=== PATIENT | female | born 1950 | race Caucasian/White ===

== ENCOUNTER 2016-08-12 11:57 | Observation (INO) | payer MEDICARE, OTHER ==
[2016-08-05 14:12] LABS: BASOPHILS 0.9 %; BASOPHILS ABSOLUTE 0.04 10/3/uL (0.0-0.16); EOSINOPHILS 5.9 %; EOSINOPHILS ABSOLUTE 0.25 10/3/uL (0.0-0.53); HEMATOCRIT 35.8 % (36.0-48.0); HEMOGLOBIN 11.5 g/dL (12.0-16.0); IMMATURE GRANULOCYTES 0.2 %; IMMATURE GRANULOCYTES ABSOLUTE 0.01 10/3/uL (0.0-0.11); LYMPHOCYTES 29.2 %; LYMPHOCYTES ABSOLUTE 1.24 10/3/uL (0.67-4.30); MANUAL DIFF NO %; MEAN CORPUS HGB CONC 32.1 g/dL (32.0-36.0); MEAN CORPUSCULAR HEMOGLOB 28.6 pg (26.0-34.0); MEAN CORPUSCULAR VOLUME 89.1 fL (80-100); MEAN PLATELET VOLUME 8.7 fL (9.2-13.0); MONOCYTES 7.3 %; MONOCYTES ABSOLUTE 0.31 10/3/uL (0.21-1.20); NEUTROPHILS 56.5 %; NEUTROPHILS ABSOLUTE 2.39 10/3/uL (2.02-8.40); PLATELET COUNT 195 10/3/uL (150-400); RBC DISTRIBUTION WIDTH 13.1 % (12.0-16.0); RED CELL COUNT 4.02 10/6/uL (4.0-5.6); WHITE BLOOD CELLS 4.2 10/3/uL (4.5-10.5)
[2016-08-05 14:20] LABS: INTERNATIONAL NORMAL RATI 0.9 UNITS (-); PARTIAL THROMBO TIME 25.5 SEC (22.5-37.2); PROTIME (NOT ORD) 12.1 SEC (12.0-14.5)
[2016-08-05 14:36] LABS: BUN (BLOOD UREA NITROGEN) 6 MG/DL (6-23); CALCIUM, SERUM 8.3 MG/DL (8.5-10.4); CHLORIDE, SERUM 104 MMOL/L (96-112); CO2 (CARBON DIOXIDE) 32 MMOL/L (24-34); CREATININE 0.61 MG/DL (0.55-1.02); GFR AFRICAN AMERICAN 109 ML/MIN (>=60); GFR NON AFRICAN AMERICAN 94 ML/MIN (>=60); GLUCOSE, SERUM 93 MG/DL (60-99); POTASSIUM, SERUM 3.7 MMOL/L (3.5-5.3)
[2016-08-05 14:37] LABS: SODIUM, SERUM 142 MMOL/L (135-148)
[2016-08-05 14:54] LABS: PFA (COL/EPI) > 300 SEC (72-180)
[2016-08-05 14:55] LABS: PFA (COL/ADP) 85 SEC (51-105)
--- NOTE | ~2016-08-12 | OP ---
Record Of Operation [facility] [address] [place]. [address] NAME: JORDAN GOMES : 48 STATUS : ADM Briana PAT#: [id number] AGE: 65 ADM/REG DATE : 08/12/16 MR#: [id number] REPORT SERV DATE: 08/13/16 DICTATED BY: VI RAMON DATE: 08/13/16 REPORT STATUS : Draft TRANSCRIBED BY: MODSamaria DATE: 08/13/16 DATE OF PROCEDURE: 08/12/2016 PREOPERATIVE DIAGNOSES: Surgical absence of the breast, history of breast cancer, anxiety, late effect of radiation, deformity of breast reconstruction. POSTOPERATIVE DIAGNOSES: Surgical absence of the breast, history of breast cancer, anxiety, late effect of radiation, deformity of breast reconstruction. PROCEDURE: Bilateral implant exchange to 555 MH implants, fat grafting, and removal of her port. Fat grafting was to correct deformity. INDICATIONS AND FINDINGS OF THE PROCEDURE: This 65-year-old female, status post bilateral tissue expansion based reconstruction. She is appropriate for the above-described operative intervention. DETAILS OF THE PROCEDURE: The patient was brought to the operating room after being marked in the preoperative holding area. With this completed, first our attention was turned to the abdomen. 350 mL of wetting solution was then infiltrated into the abdomen through two small stab incisions. Then, using a lipo harvest extraction cannula, 350 mL of fatty aspirate was removed to a Revolve apparatus. This was treated appropriately, transferred into 10 and 5 mL syringes, and then using the topographical map placed before surgery, injected into the soft tissue envelope of the breast. Other small stab incisions were then made and using a secondary topographical map, areas of lipo aspiration were undertaken around the breast to improve breast shape. With this completed, she was then thoroughly washed with Hibiclens solution, gloves were changed. Our attention was turned to the left breast. Incision was made above the inframammary crease. Dissection carried down to the level of the implant. The implant was subsequently ruptured and removed. A superior only capsulotomy was then carried out. She was checked for hemostasis, an inferior drain was placed, and a 555 MH implant was placed into the site. This was manipulated into an appropriate position, and the wounds were then closed with a deep layer of 3-0 Vicryl in multiple layers of Monocryl through to an intracuticular in the skin. Our attention was then turned contralaterally, where a similar procedure was carried out. Incision was made in the inframammary or slightly above the inframammary crease. Dissection carried down to the level of the implant, the implant was ruptured and removed. Here, a superior capsulotomy, which was circumferential and then some radial incisions were added. Hemostasis was checked. The drain was placed and then the 555 MH implant was placed into the site. This was manipulated into an appropriate position and the wounds were then closed with again a deep layer of Vicryl and multiple layers of Monocryl through to an intracuticular in the skin. Incision was made in an old port site. Dissection carried down to the level of port. The port was identified, freed from its surrounding tissue. The pseudovascular channel was then oversewed with 3-0 Monocryl. The port was removed and under grafted with remaining fat and this was then closed with multiple layers of Monocryl through to an intracuticular in the skin. She was cleansed with peroxide. Dry dressings were placed. The drains were set to suction, and she was remanded to the recovery room in stable condition. All sponge and needle counts were correct. Record Of Operation [address] [address] NAME: JORDAN GOMES : 48 STATUS : ADM Briana PAT#: [id number] AGE: 65 ADM/REG DATE : 08/12/16 MR#: [id number] REPORT SERV DATE: 08/13/16 DICTATED BY: VI RAMON DATE: 08/13/16 REPORT STATUS : Draft TRANSCRIBED BY: DESHAUN DATE: 08/13/16 JAYCEE/DESHAUN Vi Ramon M.D. / [id number] CC: Kota Clemens DO
[~2016-08-12 11:57] MED LIST: ACET500CAP PO; AMB10 PO; AT25 PO; BAYER500 MG PO; COMP10B PO; COREG6 PO; FEMARA PO; K500 PO; LEXAPRO20 PO; MCZ25 PO; MICARDIS80 PO; NEXIUM40 PO; NORCO1 TAB PO; PCET PO; PR25 PO; PRAVAC PO; PROLIA60 MG/1 ML SC; ROB1T PO; SUDAFED PO; V2 PO; VITAMIN D31000 UNIT PO; XANAX XR0.5 MG PO; XANAX1 MG PO
== END 2016-08-13 16:59 | disposition home or self-care (01) ==
LOC: SDC 11:57 → 4SO 20:22
PROVIDERS: Orthopaedic Surgery; Surgery Surgery of the Hand
PROC: 0HPU0JZ Removal of Synthetic Substitute from Left Breast, Open Approach (ICD-10-PCS; 2016-08-12)
PROC: 0HRV0JZ Replacement of Bilateral Breast with Synthetic Substitute, Open Approach (ICD-10-PCS; 2016-08-12)
PROC: 0HUV0JZ Supplement Bilateral Breast with Synthetic Substitute, Open Approach (ICD-10-PCS; principal; 2016-08-12 13:15)
PROC: 0HPT0JZ Removal of Synthetic Substitute from Right Breast, Open Approach (ICD-10-PCS; 2016-08-12 13:15)
DX: N65.0 Deformity of reconstructed breast (principal); G47.33 Obstructive sleep apnea (adult) (pediatric); D64.9 Anemia, unspecified; K44.9 Diaphragmatic hernia without obstruction or gangrene; M19.90 Unspecified osteoarthritis, unspecified site; K21.9 Gastro-esophageal reflux disease without esophagitis; Z85.3 Personal history of malignant neoplasm of breast; Z87.891 Personal history of nicotine dependence; Z88.8 Allergy status to other drugs, medicaments and biological substances
CPT/HCPCS: 71010; 80048; 85025; 85576; 85610; 85730; 93005; 96374; 96375; 96376; A9270-GY; C1769; C1789; G0378; J0295; J0690; J1170; J1580; J1885; J2250; J3010